=== PATIENT | female | born 1950 | race Caucasian/White ===

== ENCOUNTER 2021-10-01 05:09 | Day surgery (SDC) | payer BC ==
[2021-09-26 14:18] VITALS: BMI 18.6
[2021-10-01 09:11] VITALS: TEMP 97.3
[2021-10-01 09:56] VITALS: BP 124/61; PULSE 52
== END 2021-10-01 10:28 | disposition home or self-care (01) ==
LOC: JASU-ENDO 05:09
PROVIDERS: ATTEND Internal Medicine Gastroenterology
PROC: 0DB78ZX Excision of Stomach, Pylorus, Via Natural or Artificial Opening Endoscopic, Diagnostic (ICD-10-PCS; 2021-10-01)
PROC: 0DB28ZX Excision of Middle Esophagus, Via Natural or Artificial Opening Endoscopic, Diagnostic (ICD-10-PCS; 2021-10-01)
PROC: 0DB38ZX Excision of Lower Esophagus, Via Natural or Artificial Opening Endoscopic, Diagnostic (ICD-10-PCS; 2021-10-01)
PROC: 0DB98ZX Excision of Duodenum, Via Natural or Artificial Opening Endoscopic, Diagnostic (ICD-10-PCS; principal; 2021-10-01 10:00)
DX: K21.00 Gastro-esophageal reflux disease with esophagitis, without bleeding (principal); K29.50 Unspecified chronic gastritis without bleeding; R13.10 Dysphagia, unspecified
CPT/HCPCS: 88305-TC; 88342-TC